=== PATIENT | male | born 1960 | race Caucasian/White ===

== ENCOUNTER 2020-03-20 14:18 | Emergency (ER) | payer OTHER ==
[~2020-03-20] VITALS: Ht 170.2 cm; Wt 81.7 kg
[~2020-03-20 14:18] MED LIST: ALLOPURINOL 10100 M1 PO; ASPIRIN EC500 M1 PO; ATENOLOL 100MG100 MG; ATENOLOL-CHLOR1 EAC2 PO; DEPLIN-ALGAL O1 EAC1 PO; FLEXERIL PO; HYDROCODONE-AP1 EAC6 PO; LIPITOR 20 MG T20 M1 PO; MIRALAX17 GM PO; NEURONTIN 300300 M1 PO; OMEPRAZOLE40 MG; PROZAC20 MG PO; SENNA8.6 MG PO; SEROQUEL 50 MG50 MG PO
[2020-03-20] MEDS ORDERED: BRINTELLIX10 MG PO (14:28)
[2020-03-20 15:14] LABS: ABSOLUTE EOSINOPHILS 0.1 thou/uL (0.0-0.7); ABSOLUTE LYMPHOCYTES 2.1 thou/uL (0.8-5.3); ABSOLUTE MONOCYTES 0.5 thou/uL (0.0-1.2); ABSOLUTE NEUTROPHILS 4.6 thou/uL (1.6-8.1); BASOPHILS 0.6 %; EOSINOPHILS 1.4 %; HEMOGLOBIN 16.5 gm/dL (14.0-18.0); LYMPHOCYTES 28.8 %; MCH 27.6 pg (26.0-34.0); MCV 83.8 fL (80.0-100.0); MONOCYTES 7.1 %; MPV 8.2 fl. (7.2-11.1); NUCLEATED RBCS 0 /100WBC; PLATELET COUNT* 207 thou/uL (150-400); POLYS 62.1 %; RBC 5.96 mil/uL (4.50-6.00); RDW-CV 14.5 % (10.5-14.5); WBC 7.3 thou/uL (4.0-11.0)
[2020-03-20 15:19] LABS: CREATININE 1.1 mg/dL (0.6-1.3)
[2020-03-20 15:22] VITALS: BP 165/93
[2020-03-20 15:24] LABS: ALBUMIN 3.9 g/dL (3.4-5.0); TOTAL BILIRUBIN 0.4 mg/dL (<0.1-1.0); TOTAL PROTEIN 7.6 g/dL (6.4-8.2)
== END 2020-03-20 15:25 | disposition short-term general hospital (02) ==
LOC: M.ERS 14:18
PROVIDERS: Emergency Medicine Emergency Medical Services
DX: S01.01XA Laceration without foreign body of scalp, initial encounter (principal); S51.812A Laceration without foreign body of left forearm, initial encounter; K21.9 Gastro-esophageal reflux disease without esophagitis; I10 Essential (primary) hypertension; W11.XXXA Fall on and from ladder, initial encounter; Y93.89 Activity, other specified; Y92.89 Other specified places as the place of occurrence of the external cause; Y99.8 Other external cause status